=== PATIENT | male | born 1985 | race Caucasian/White ===

== ENCOUNTER 2019-07-18 21:15 | Inpatient (IN) | payer OTHER ==
[~2019-07-18] VITALS: Ht 170.2 cm; Wt 75.0 kg
[2019-07-18 23:11] VITALS: BP 134/81
[2019-07-18] MEDS ORDERED: VITACHTA PO (23:33)
[2019-07-19] MEDS ORDERED: MORPHINE 2 MG/ML 1ML VIAL (J2270) IV PRN
[2019-07-19] MEDS ORDERED: ONDANSETRON 4MG/2ML VIAL (J2405) IV PRN (00:30)
[2019-07-19] MEDS: LR 1,000 ML IV SCH ×3 (00:42→15:39)
[2019-07-19] MEDS: PANTOPRAZOLE 40MG INJ (PROTONIX) (C9113) IV SCH (00:42)
[2019-07-19] MEDS: KETOROLAC 30 MG/ML VIAL (J1885) IV SCH ×4 (00:43→17:16)
[2019-07-19 02:00] VITALS: BP 130/76
[2019-07-19 02:54] VITALS: BP 134/81
[2019-07-19 06:35] VITALS: BP 131/83
--- NOTE | 2019-07-19 06:39 | HPE ---
DATE OF ADMISSION: 07/18/2019 ADMITTING DIAGNOSIS: Recurrent small intestinal obstruction. HISTORY OF PRESENT ILLNESS: The patient is a 33-year-old man who had undergone some sort of exploratory laparotomy as a for some form of intestinal abnormality. He described that it was done for collapsed bowel and I wonder if he may have had an atresia. He did well following this and had no issues until at least 2005 when he was apparently seen and treated for a bowel obstruction. He was treated nonoperatively and this resolved. On July 06 while in [place], he developed signs and symptoms of a bowel obstruction and was admitted at the [facility] in [place], [place]. He apparently underwent NG decompression without resolution of his bowel obstruction and on July 08 underwent an open laparotomy with release of a small bowel obstruction. The patient reports that there was no bowel resected, only a lysis of adhesions. He remained in the hospital until July 12 when he was discharged. He apparently was taking a regular diet and tolerating this well. He subsequently returned to [facility]. He is in the process of moving his family from the [facility] to [place]. He reports that he had been feeling well with normal bowel function and no nausea or vomiting and no fevers or chills. He reports that he last had anything to eat at about 9 o'clock on the morning of the . He had a bowel movement at about 1:15 in the afternoon. He subsequently developed significant abdominal pain about 3 o'clock in the afternoon on the . He developed recurrent vomiting and presented to [facility] for evaluation and treatment. At [facility], he had some laboratory studies obtained and then underwent evaluation with a CT scan of the abdomen and pelvis. His CT scan showed multiple dilated loops of small bowel consistent with a recurrent bowel obstruction. He was seen by a Dr. Sahu who claims to be a general surgeon working at [facility] who requested transfer. I accepted the patient and he is now admitted for management of what appears to be a recurrent small bowel obstruction. ALLERGIES: The patient has NO KNOWN DRUG ALLERGIES. MEDICATIONS: The patient is not on any routine medications. He had Zofran and several doses of Dilaudid at [facility] this evening prior to transfer. MEDICAL HISTORY: The patient is retired from the . He apparently reports a history of post traumatic stress disorder. SURGICAL HISTORY: The patient has had two operations on his right shoulder. He has undergone [facility] vision correction surgery. He had his surgery as a for intestinal abnormality and then had his surgery on July 08 in [place]. FAMILY HISTORY: Show no pertinent inheritable conditions. SOCIAL HISTORY: The patient does not smoke and denies any significant alcohol intake. He is . REVIEW OF SYSTEMS: The patient denies any history of chest pain or palpitations. He has no shortness of breath, cough, wheezing or sputum production. He denies any history of jaundice, hepatitis or pancreatitis. He has had no history of peptic ulcer disease. He denies any dysuria or hematuria. He denies any bone or joint issues. He has no history of deep vein thrombosis (DVT) or pulmonary embolus. PHYSICAL EXAMINATION: Reveals a pleasant young man lying quietly on the hospital bed. Intermittently, he holds his abdomen and appears uncomfortable consistent with waves of cramping. Head, Eyes, Ears, Nose and Throat: Reveals that the skin is warm and dry. Sclerae are anicteric. Mucous membranes are moist. The neck is supple and there is no palpable cervical mass. He has no cervical bruits. Heart exam shows a regular rate and rhythm, which is a rate of approximately 70-80. The lungs are clear to auscultation bilaterally. Abdomen shows a stapled approximately 15 cm midline incision coursing around the umbilicus. There is an old transverse scar in the right mid to upper abdomen. The incision appears clean and seems to be healing well. His abdomen is somewhat distended. The abdomen is fairly quiet to auscultation. There is some mild tympany to percussion in the right mid and upper abdomen. He has some diffuse mild tenderness, particularly in the mid abdomen and right upper quadrant and right midabdomen. There is no evident hernia. He does not appear to have rebound tenderness. Lower extremities show no peripheral edema. He has palpable pedal pulses. He has palpable radial pulses bilaterally. LABORATORY STUDIES: Done at [facility] at approximately 1800 on the show a white count of 19, hemoglobin of 16, hematocrit of 47 and a platelet count of 497,000. His differential count showed 79% neutrophils, 12% lymphocytes and 7% monocytes. His chemistry profile showed a sodium of 136, potassium 4.2, chloride 95, CO2 of 22, BUN of 15, creatinine 0.7 and glucose of 118. Total protein was 8.1 with an albumin of 4.9. Liver function tests were all normal with the exception of a minimal elevation of his ALT to 72 and his alkaline phosphatase to 169. Lactic acid was 2.0 and lipase was only 29. CT scan images were sent on a computer disk and I reviewed these personally. The patient has some dilated fluid-filled loops of small bowel, particularly in the distal small bowel on the right side of the abdomen. He has a fairly short segment of decompressed and empty terminal ileum. The colon is empty as well. There is a little free fluid down in the pelvis. There is no sign of abscess within the abdomen. There is no free air identified. The lung bases appear clear. There is no sign of pleural effusions. IMPRESSION: The patient clearly has a recurrent small bowel obstruction now 10 days postoperative from exploratory laparotomy in [place]. PLAN: The patient was counseled that he has a recurrence of his obstruction. There may still be a possibility that this would resolve spontaneously with nonoperative management. I have therefore recommended that we place a nasogastric tube to decompress his stomach at least and try to prevent any further gastric juice or air from passing distally. I will start him on some Protonix to decrease his gastric secretions. He will be placed on Toradol routinely and morphine on an as-needed basis. He can be up out of bed to ambulate. I will start him on Lovenox for DVT prophylaxis. Hopefully, he will show signs of resolution of his bowel obstruction within the next 1-2 days. If not, it may be necessary to consider re-exploration. He was counseled that we would like to avoid this if possible given the degree of inflammatory change that might be expected 10 days postop. The patient had an opportunity to ask questions. He is agreeable with the plan as I have outlined it. We will recheck a BMP and a CBC in the morning. CHARLETTE
[2019-07-19] MEDS: ENOXAPARIN 40 MG/0.4 ML SYRINGE (J1650) SC SCH (07:27)
[2019-07-19 09:24] LABS: BASO % 0.3 % (0.0-1.0); EOS # 0.6 10^3/uL (0.0-0.5); EOS % 5.4 % (0.0-3.0); HEMATOCRIT 39.1 % (42.0-52.0); HEMOGLOBIN 12.6 g/dl (13.5-17.5); LYMPH # 1.6 10^3/uL (1.5-5.0); LYMPH % 14.4 % (24.0-44.0); MEAN CORPUSCULAR HEMOGLOBIN 29.6 pg (27.0-33.0); MEAN CORPUSCULAR HGB CONC 32.2 g/dl (32.0-36.5); MEAN CORPUSCULAR VOLUME 91.8 fl (80.0-96.0); MONO # 1.2 10^3/uL (0.0-0.8); MONO % 10.9 % (0.0-5.0); NEUTROPHILS # 7.6 10^3/uL (1.5-8.5); NEUTROPHILS % 68.5 % (36.0-66.0); PLATELET COUNT, AUTOMATED 344 10^3/uL (150-450); RED BLOOD COUNT 4.26 10^6/uL (4.30-6.10); WHITE BLOOD COUNT 11.1 10^3/uL (4.0-10.0)
[2019-07-19 09:56] LABS: BLOOD UREA NITROGEN 16 MG/DL (7-18); CALCIUM LEVEL 8.6 MG/DL (8.5-10.1); CARBON DIOXIDE LEVEL 30 MEQ/L (21-32); CHLORIDE LEVEL 105 MEQ/L (98-107); CREATININE FOR GFR 0.79 MG/DL (0.70-1.30); GLOMERULAR FILTRATION RATE > 60.0 (>60); GLUCOSE, FASTING 91 MG/DL (70-100); POTASSIUM SERUM 4.3 MEQ/L (3.5-5.1); SODIUM LEVEL 139 MEQ/L (136-145)
[2019-07-19 14:00] VITALS: BP 108/67
--- NOTE | 2019-07-19 18:00 | IPN ---
DATE: 07/19/2019 HISTORY: The patient was admitted last night on transfer from [facility]. He is 11 days out now from an exploratory laparotomy for a bowel obstruction in [place]. He returned to the area and developed recurrent symptoms of an obstruction yesterday for which he presented at [facility]. He was transferred to my care from [place]. Today he feels a little less uncomfortable. He still has occasional cramping pains but not a persistent lasting pain. He has passed some flatus today, though he thinks it is really not much. He has been voiding adequately. Vital signs: Show that he has been afebrile since admission. His pulse is in the 80s at this point, and his blood pressure is good. Room air oxygen saturations are normal. Intake and output shows that he has had good urine output and only 100 mL recorded from his NG, although there is approximately 400 mL in his container right now. PHYSICAL EXAMINATION: The patient is alert and appears fairly comfortable. Heart exam shows a regular rhythm, and he is not tachycardiac. The abdomen is flat. He has very active bowel sounds throughout. There is no tympany to percussion. There is no tenderness to percussion. On palpation, he has some very mild direct tenderness, fairly diffusely but is certainly much less tender than he was last night. Laboratory studies this morning showed a white count of 11,000, hemoglobin of 13, hematocrit of 39 and a platelet count of 344,000. Differential count showed 68% neutrophils, 14% lymphocytes and 11% monocytes. Chemistry profile showed a sodium of 139, potassium 4.3, chloride 105, CO2 of 30, BUN of 16, creatinine 0.8 and a glucose of 91. IMPRESSION: The patient is more comfortable this morning. He does report having passed some flatus. His NG is not putting out an awful lot. The abdomen is much softer and the tenderness is largely resolved. His white blood cell count is diminished. PLAN: I will continue the NG tube tonight and as well as his IV fluids. I will get a KUB in the morning to assess the pattern of his bowel gas and proceed from there. If the pattern is not suggestive of a bowel obstruction, we can consider either clamping or removing his NG tube in the morning. CHARLETTE
[2019-07-19 20:00] VITALS: BP 116/72
[2019-07-20] VITALS: BP 116/71
[2019-07-20] MEDS: KETOROLAC 30 MG/ML VIAL (J1885) IV SCH ×3 (00:01→12:15)
[2019-07-20] MEDS: LR 1,000 ML IV SCH ×3 (00:01→15:56)
[2019-07-20 02:00] VITALS: BP 114/72
[2019-07-20 06:00] VITALS: BP 118/67
[2019-07-20] MEDS: ENOXAPARIN 40 MG/0.4 ML SYRINGE (J1650) SC SCH (08:19)
[2019-07-20 08:41] VITALS: BP 107/67
[2019-07-20] MEDS: PANTOPRAZOLE 40MG INJ (PROTONIX) (C9113) IV SCH (08:49)
--- NOTE | 2019-07-20 09:16 | IPN ---
DATE: 07/20/2019 HISTORY: The patient was admitted late on the night of the 18 of July as a transfer from [facility]. He is now 12 days postop from exploratory laparotomy for a bowel obstruction in [place]. He had represented to [facility] with recurring symptoms of obstruction and a CT suggested an obstruction in the distal small bowel. He has been observed with an NG tube in place. This morning he reports that he has been passing some flatus but has not had a bowel movement. He is not having any significant pain currently. His NG tube remains in place. Vital signs: Show that he has been afebrile. His pulse is in the 80s and low 90s. Blood pressure is excellent and his room air oxygen saturations are normal. Intake and output show that yesterday he had 1100 recorded in IV with 400 of urine output and 550 of NG drainage. His IV is running at a rate that should yield more than 2 liters of IV fluid daily, so I suspect there is some inaccuracy in the reporting. Today this morning his NG is recorded as 750 mL out overnight. PHYSICAL EXAMINATION: The patient is alert and appears fairly comfortable. Heart exam shows a regular rhythm. The lungs are clear. The abdomen is flat. The abdomen is soft and nontender with bowel sounds present. His KUB for this morning is not yet done. IMPRESSION: Clinically the patient appears better. He reports he has been passing flatus and his abdomen is soft and nontender. PLAN: I will review his KUB when this is available and consider discontinuing his NG tube later in the day. CHARLETTE
--- NOTE | 2019-07-20 09:50 | REP ---
Clinical: Post surgical evaluation. Small bowel obstruction. Technique: Two supine views of the abdomen and pelvis. Findings: Surgical felicia identified midline. The bowel gas pattern is nonspecific. No obvious bowel obstruction or perforation noted. No significant abnormal calcifications. Skeletal structures are intact. Impression: Nonspecific bowel gas pattern. Electronically Signed by Zander Yu MD 07/20/2019 09:42 A
[2019-07-20 13:00] VITALS: BP 109/68
[2019-07-20] MEDS ORDERED: E-Z-PAQUE 96% w/w SUSP 176GM BTL As Ordered ONE (14:49)
[2019-07-20] MEDS ORDERED: KETOROLAC 30 MG/ML VIAL (J1885) IV PRN (18:00)
[2019-07-20 22:00] VITALS: BP 128/78
[2019-07-21 02:00] VITALS: BP 125/79
[2019-07-21] MEDS: LR 1,000 ML IV SCH ×2 (04:29→17:20)
[2019-07-21 06:00] VITALS: BP 109/81
[2019-07-21 07:15] LABS: BASO % 0.4 % (0.0-1.0); EOS # 0.4 10^3/uL (0.0-0.5); EOS % 5.4 % (0.0-3.0); HEMATOCRIT 36.4 % (42.0-52.0); HEMOGLOBIN 11.9 g/dl (13.5-17.5); LYMPH # 1.8 10^3/uL (1.5-5.0); LYMPH % 22.8 % (24.0-44.0); MEAN CORPUSCULAR HEMOGLOBIN 29.5 pg (27.0-33.0); MEAN CORPUSCULAR HGB CONC 32.7 g/dl (32.0-36.5); MEAN CORPUSCULAR VOLUME 90.1 fl (80.0-96.0); MONO # 0.6 10^3/uL (0.0-0.8); MONO % 7.5 % (0.0-5.0); NEUTROPHILS % 63.5 % (36.0-66.0); PLATELET COUNT, AUTOMATED 321 10^3/uL (150-450); RED BLOOD COUNT 4.04 10^6/uL (4.30-6.10); WHITE BLOOD COUNT 7.9 10^3/uL (4.0-10.0)
[2019-07-21 07:32] LABS: BLOOD UREA NITROGEN 11 MG/DL (7-18); CALCIUM LEVEL 8.4 MG/DL (8.5-10.1); CARBON DIOXIDE LEVEL 28 MEQ/L (21-32); CHLORIDE LEVEL 105 MEQ/L (98-107); CREATININE FOR GFR 0.64 MG/DL (0.70-1.30); GLOMERULAR FILTRATION RATE > 60.0 (>60); GLUCOSE, FASTING 95 MG/DL (70-100); POTASSIUM SERUM 3.5 MEQ/L (3.5-5.1); SODIUM LEVEL 140 MEQ/L (136-145)
--- NOTE | 2019-07-21 08:19 | REP ---
Clinical: Possible small bowel obstruction. Technique: Two supine views of the abdomen and pelvis. Findings: Oral contrast material from previous small bowel follow-through examination has progressed into the colon without evidence for obstruction. Impression: Oral contrast now identified throughout the colon without evidence for complete small bowel obstruction. Electronically Signed by Zander Yu MD 07/21/2019 08:11 A
[2019-07-21] MEDS: PANTOPRAZOLE 40MG INJ (PROTONIX) (C9113) IV SCH (09:07)
[2019-07-21] MEDS: ENOXAPARIN 40 MG/0.4 ML SYRINGE (J1650) SC SCH (09:08)
[2019-07-21 10:00] VITALS: BP 113/80
[2019-07-21] MEDS ORDERED: IBUPROFEN 600 MG TAB PO PRN (10:45)
[2019-07-21] MEDS ORDERED: ACETAMINOPHEN TAB 650MG DOSE (2X325MG) PO PRN (10:45)
--- NOTE | 2019-07-21 13:49 | REP ---
Clinical: Small bowel obstruction. Technique: Single contrast small bowel follow-through examination. Findings: Diffuse dilated loops of small bowel noted throughout the abdomen and pelvis having a hide-bound appearance with significantly delayed motility. A partial small bowel obstruction cannot be excluded without obvious point of transition. Differential diagnosis may also include scleroderma and sprue. Total fluoroscopic time: 1.5 minutes (20.2 mGy) Impression: Dilated small bowel with delayed transit time to the colon having a hide-bound appearance. Differential diagnosis includes partial small bowel obstruction as well as underlying pathology including scleroderma and sprue. Electronically Signed by Zander Yu MD 07/21/2019 01:41 P
[2019-07-21 14:00] VITALS: BP 119/81
[2019-07-21 18:00] VITALS: BP 122/82
[2019-07-21 22:00] VITALS: BP 120/78
[2019-07-22 06:00] VITALS: BP 123/62
[2019-07-22] MEDS: PANTOPRAZOLE 40MG INJ (PROTONIX) (C9113) IV SCH (08:39)
[2019-07-22] MEDS: ENOXAPARIN 40 MG/0.4 ML SYRINGE (J1650) SC SCH (08:40)
--- NOTE | 2019-07-22 08:44 | IPN ---
DATE: 07/21/2019 HISTORY: The patient was admitted with a recurrent small bowel obstruction approximately 10 days postoperative from having surgery for a bowel obstruction in [place]. He had a small bowel follow-through study done yesterday which showed still some significantly abnormal loops of small bowel, but there was flow of contrast through the small bowel reaching the right colon in a delayed time. His nasogastric (NG) tube was removed yesterday. He reports that he has not had any recurrence of his abdominal pain. He continues to pass some flatus, but has not yet had a bowel movement. Vital signs show that he has been afebrile over the past 24 hours. His pulse is in the 70s and 80s and his blood pressure is good. Intake and output shows that yesterday he had 500 mL of IV fluid recorded, although this clearly under represents his likely actual infusion. He had 1250 recorded out. PHYSICAL EXAMINATION: The patient is sitting up in the bed looking quite comfortable. He is alert and oriented. Heart exam shows a regular rhythm. Lungs are clear and his abdomen is soft and without tenderness. He has active bowel sounds. LABORATORY STUDIES: This morning, include a CBC that shows a white count of 8, hemoglobin of 12, hematocrit of 36 and platelet count of 321,000. Differential showed 64% neutrophils, 23% lymphocytes and 8% monocytes. His chemistry profile showed normal electrolytes, BUN and creatinine, and a glucose of 95. He had a KUB this morning that showed that almost all of the oral contrast from his study yesterday has gotten into the colon and he has contrast extending all the way from the cecum to the mid sigmoid colon. There are a couple of small collections of contrast that remain in segments of the small bowel. IMPRESSION: The patient has clearly resolved his bowel obstruction, but it is certainly possible that he has a lasting partial obstruction. The small bowel follow-through study did show that he has some significant abnormalities of the bowel with some areas of the bowel that are dilated. PLAN: The patient will be started on a clear liquid diet today. We will see how he tolerates that. If he tolerates the clear liquids, I will consider sending him home, but would recommend he remain on a liquid diet for at least several days to ensure that he has adequate flow before advancing his diet and I believe he should remain on a low residue diet for some time afterwards. He will be leaving the area to return to [place] in about 10-12 days and will need to follow up there when he returns. CHARLETTE
[2019-07-22 10:00] VITALS: BP 137/85
--- NOTE | 2019-07-23 07:06 | IPN ---
DATE: 07/22/2019 HISTORY: The patient was admitted late on July 18 with a recurrent small bowel obstruction. He had undergone surgery for a bowel obstruction in [place] on July 08. The patient was started on some clear liquids yesterday. He has tolerated these well. He denies any pain today and has no nausea or vomiting. He has had some loose bowel movements. Vital signs show that he has been afebrile. Pulse has been in the low 80s and his blood pressure is excellent. Intake and output shows that he had over 1000 mL of oral fluids yesterday and has had 800 mL so far today. He has been voiding fine. PHYSICAL EXAMINATION: Patient is sitting up in the bed looking comfortable and alert. Abdomen shows active bowel sounds and is soft and nontender. IMPRESSION: The patient's small bowel obstruction has resolved. His small bowel follow-through study yesterday showed still some abnormal small bowel with some areas that appeared somewhat dilated and fixed in position. PLAN: The patient will be discharged home today. I have counseled him to remain on a liquid diet. I have recommended that he try some Ensure or Boost for better nutrition. I have suggested that he can add some yogurt or pudding or applesauce to his diet. I have recommended that he remain on liquids for at least several days to ensure that his intestinal tract is working well. I have counseled him against eating any highly fibrous food or stringy foods like green beans or cabbage or corn. He will be returning to [place] by August 02 and actually has an appointment with his surgeon there who had done his bowel obstruction in June. I will not provide him any new prescriptions. I advised him against any strenuous physical activity for now. CHARLETTE
== END 2019-07-22 14:32 | disposition home or self-care (01) | DRG 390 ==
LOC: M MS5PR 23:56
PROVIDERS: ADMIT Surgery; ATTEND Surgery
DX: K91.30 Postprocedural intestinal obstruction, unspecified as to partial versus complete (principal)